=== PATIENT | male | born 1985 | race Caucasian/White ===

== ENCOUNTER 2023-12-01 10:00 | Outpatient (RCR) | payer OTHER, SELFPAY | END 2024-02-03 09:29 | disposition home or self-care (01) | PROVIDERS: PCP Family Medicine; Visit Provider Family Medicine | DX: M25.561 Pain in right knee (principal); G89.29 Other chronic pain; M62.81 Muscle weakness (generalized); Z51.89 Encounter for other specified aftercare | CPT/HCPCS: 97110; 97140; 97161 ==